=== PATIENT | male | born 1965 | race Caucasian/White ===

== ENCOUNTER 2021-02-07 08:58 | Emergency (ER) | payer OTHER ==
[2021-02-07] MEDS ORDERED: HYDROMORPHONE HCL 1 MG/ML INJ ONE ×3 (09:37→12:07)
[2021-02-07] MEDS ORDERED: ONDANSETRON 4 MG/2 ML VIAL ONE ×2 (09:37→11:02)
--- NOTE | 2021-02-07 09:49 | EDPHYS ---
Physician Documentation [facility] Name: Yasmin Vincent Age: 55 yrs Sex: Male : 1965 Arrival Date: 02/07/2021 Time: 08:58 Bed 3 Private MD: ED Physician Luke Kirby HPI: 02/07 09:43 This 55 yrs old Male presents to ER via EMS with complaints of Arm Injury. andrew 09:43 The patient or guardian complains of decreased range of motion, pain, that is acute. andrew The complaints affect the left bicep and left tricep. Context: The problem was sustained outdoors, on a street or driveway. Onset: The symptoms/episode began/occurred just prior to arrival. Treatment prior to arrival includes: no previous treatment. Modifying factors: The symptoms are alleviated by remaining still, the symptoms are aggravated by movement. Associated signs and symptoms: The patient has no apparent associated signs or symptoms. Severity of symptoms: At their worst the symptoms were moderate, in the emergency department the symptoms are unchanged. The patient has not experienced similar symptoms in the past. Historical: - Allergies: 09:09 Iodine; ss 09:09 Phenergan; ss - Home Meds: 09:09 amlodipine 10 mg tab 1 tab once daily [Active]; Lisinopril Oral [Active]; ss Hydrochlorothiazide Oral [Active]; - PMHx: 09:09 Hypertension; GERD; Kidney stones; ss - Immunization history:: Adult Immunizations up to date, Last tetanus immunization: Pt states he is unsure, but believes he had a tetanus vaccine last year. - Social history:: Smoking status: Patient reports the use of cigarette tobacco products, smokes one-half pack cigarettes per day. - Family history:: not pertinent. ROS: 09:43 Constitutional: Negative for fever, chills, and weight loss, Eyes: Negative for injury, andrew pain, redness, and discharge, ENT: Negative for injury, pain, and discharge, Neck: Negative for injury, pain, and swelling, Cardiovascular: Negative for chest pain, palpitations, and edema, Respiratory: Negative for shortness of breath, cough, wheezing, and pleuritic chest pain, Abdomen/GI: Negative for abdominal pain, nausea, vomiting, diarrhea, and constipation, Back: Negative for injury and pain, : Negative for injury, bleeding, discharge, and swelling, Skin: Negative for injury, rash, and discoloration, Neuro: Negative for headache, weakness, numbness, tingling, and seizure. 09:43 MS/extremity: Positive for decreased range of motion, pain, swelling, tenderness, of the left bicep and left tricep. Exam: 09:43 Constitutional: This is a well developed, well nourished patient who is awake, alert, andrew and in no acute distress. Head/Face: Normocephalic, atraumatic. Eyes: Pupils equal round and reactive to light, extra-ocular motions intact. Lids and lashes normal. Conjunctiva and sclera are non-icteric and not injected. Cornea within normal limits. Periorbital areas with no swelling, redness, or edema. ENT: Nares patent. No nasal discharge, no septal abnormalities noted. Tympanic membranes are normal and external auditory canals are clear. Oropharynx with no redness, swelling, or masses, exudates, or evidence of obstruction, uvula midline. Mucous membranes moist. Neck: Trachea midline, no thyromegaly or masses palpated, and no cervical lymphadenopathy. Supple, full range of motion without nuchal rigidity, or vertebral point tenderness. No Meningismus. Chest/axilla: Normal chest wall appearance and motion. Nontender with no deformity. No lesions are appreciated. Cardiovascular: Regular rate and rhythm with a normal S1 and S2. No gallops, murmurs, or rubs. Normal PMI, no JVD. No pulse deficits. Respiratory: Lungs have equal breath sounds bilaterally, clear to auscultation and percussion. No rales, rhonchi or wheezes noted. No increased work of breathing, no retractions or nasal flaring. Abdomen/GI: Soft, non-tender, with normal bowel sounds. No distension or tympany. No guarding or rebound. No evidence of tenderness throughout. Back: No spinal tenderness. No costovertebral tenderness. Full range of motion. Male : Normal genitalia with no discharge or lesions. Skin: Warm, dry with normal turgor. Normal color with no rashes, no lesions, and no evidence of cellulitis. Neuro: Awake and alert, GCS 15, oriented to person, place, time, and situation. Cranial nerves II-XII grossly intact. Motor strength 5/5 in all extremities. Sensory grossly intact. Cerebellar exam normal. Normal gait. Psych: Awake, alert, with orientation to person, place and time. Behavior, mood, and affect are within normal limits. 09:43 Musculoskeletal/extremity: Extremities: grossly normal except: noted in the left bicep and left tricep: decreased ROM, pain, swelling, tenderness, ROM: limited active range of motion due to pain, limited passive range of motion due to pain, Circulation is intact in all extremities. Tingling of extremity. Compartment Syndrome exam of affected extremity: is normal. Joints: All joints appear normal with full range of motion. DVT Exam: negative Homans' sign noted on exam, no appreciated bluish discoloration, no erythema, no increased warmth, pain, swelling, tenderness. Vital Signs: 09:05 BP 161 / 105; Pulse 72; Resp 20; Temp 97.7(O); Pulse Ox 100% on R/A; Weight 86.18 kg; ss Height 6 ft. 0 in. (182.88 cm); Pain 7/10; 10:00 BP 162 / 95; Pulse 77; Resp 16; Pulse Ox 99% on R/A; Pain 8/10; hb 10:55 BP 176 / 86; Pulse 71; Resp 17; Pulse Ox 99% on R/A; Pain 10/10; hb 11:45 BP 168 / 88; Pulse 70; Resp 15; Pulse Ox 97% ; Pain 8/10; hb 11:45 BP 172 / 88; Pulse 72; Resp 16; Temp 98; Pulse Ox 99% ; sv 09:05 Body Mass Index 25.77 (86.18 kg, 182.88 cm) [place] Coma Score: 10:00 Eye Response: spontaneous(4). Verbal Response: oriented(5). Motor Response: obeys sv commands(6). Total: 15. Trauma Score (Adult): 10:00 Eye Response: spontaneous(1); Verbal Response: oriented(1); Motor Response: obeys sv commands(2); Systolic BP: > 89 mm Hg(4); Respiratory Rate: 10 to 29 per min(4); [place] Score: 15; Trauma Score: 12 10:55 Eye Response: spontaneous(1); Verbal Response: oriented(1); Motor Response: obeys sv commands(2); Systolic BP: > 89 mm Hg(4); Respiratory Rate: 10 to 29 per min(4); [place] Score: 15; Trauma Score: 12 11:45 Eye Response: spontaneous(1); Verbal Response: oriented(1); Motor Response: obeys sv commands(2); Systolic BP: > 89 mm Hg(4); Respiratory Rate: 10 to 29 per min(4); [place] Score: 15; Trauma Score: 12 11:45 Eye Response: spontaneous(1); Verbal Response: oriented(1); Motor Response: obeys sv commands(2); Systolic BP: > 89 mm Hg(4); Respiratory Rate: 10 to 29 per min(4); [place] Score: 15; Trauma Score: 12 MDM: 09:12 Patient medically screened. [facility] 09:49 Differential diagnosis: closed fracture. Data reviewed: vital signs, nurses notes, lab [facility] test result(s), radiologic studies, plain films. Data interpreted: night monitor: rate is 72 beats/min, rhythm is regular, Pulse oximetry: on room air is 100 %. Test interpretation: by ED physician or midlevel provider: ECG, plain radiologic studies. Counseling: I had a detailed discussion with the patient and/or guardian regarding: the historical points, exam findings, and any diagnostic results supporting the discharge/admit diagnosis, lab results, radiology results. 02/07 09:43 Order name: CBC with Diff [facility] 02/07 09:43 Order name: Comprehensive Metabolic Panel; Complete Time: 10:43 [facility] 02/07 09:43 Order name: Humerus Left XRAY [facility] 02/07 09:43 Order name: Chest Single View XRAY [facility] 02/07 10:29 Order name: CBC Smear Scan [facility] 02/07 09:43 Order name: Splint: coaptation; Complete Time: 10:32 [facility] 02/07 09:48 Order name: NPO; Complete Time: 10:07 [facility] 02/07 10:17 Order name: Sling; Complete Time: 10:32 [facility] Administered Medications: 09:30 Drug: Dilaudid (HYDROmorphone) 1 mg Route: IVP; Site: right antecubital; hb 10:00 Follow up: Response: No adverse reaction hb 09:30 Drug: Zofran (Ondansetron) 4 mg Route: IVP; Site: right antecubital; hb 10:00 Follow up: Response: No adverse reaction hb 10:07 Drug: Dilaudid (HYDROmorphone) 1 mg Route: IVP; Site: right antecubital; hb 10:32 Follow up: Response: No adverse reaction hb 10:15 Drug: NS 0.9% 1000 ml Route: IV; Rate: 1 bolus; Site: right antecubital; hb 11:20 Follow up: Response: No adverse reaction; IV Status: Completed infusion; IV Intake: hb 1000ml 10:53 Drug: Dilaudid (HYDROmorphone) 1 mg Route: IVP; Site: right antecubital; hb 11:26 Follow up: Response: No adverse reaction hb 10:54 Drug: TORadol 30 mg Route: IVP; Site: right antecubital; hb 11:25 Follow up: Response: No adverse reaction hb 10:54 Drug: Zofran (Ondansetron) 4 mg Route: IVP; Site: right antecubital; hb 11:26 Follow up: Response: No adverse reaction hb 11:53 Drug: Dilaudid (HYDROmorphone) 1 mg Route: IVP; Site: right antecubital; hb 11:53 Follow up: Response: Medication administered at discharge. hb Disposition: 02/07/21 09:48 Transfer ordered to [facility]. Diagnosis is Displaced comminuted fracture of shaft of humerus, left arm. - Reason for transfer: Higher level of care. - Accepting physician is to , trauma. - Condition is Fair. - Problem is new. - Symptoms have improved. Signatures: Dispatcher [employer] EDMO Luke Kirby MD MD cha Mickail, Joel, PA PA jmm Smirch, Shelby, RN RN ss Baxter, Heather, RN RN Corrections: (The following items were deleted from the chart) 11:53 09:48 02/07/2021 09:48 Transfer ordered to [facility]. Diagnosis is hb Displaced comminuted fracture of shaft of humerus, left arm. Reason for transfer: Higher level of care. Accepting physician is to , trauma. Condition is Fair. Problem is new. Symptoms have improved. andrew
--- NOTE | 2021-02-07 09:49 | ER ---
Nurse's Notes [facility] Name: Yasmin Vincent Age: 55 yrs Sex: Male : 1965 Arrival Date: 02/07/2021 Time: 08:58 Bed 3 Private MD: Diagnosis: Displaced comminuted fracture of shaft of humerus, left arm Presentation: 02/07 09:05 Chief complaint: Patient states: L upper arm pain and deformity after slipping on ss second step of [address] while getting out just prior to arrival. Coronavirus screen: Client denies travel out of the [place] in the last 14 days. Ebola Screen: Patient denies exposure to infectious person. Patient denies travel to an Ebola-affected area in the 21 days before illness onset. Initial Sepsis Screen: Does the patient meet any 2 criteria? No. Patient's initial sepsis screen is negative. Does the patient have a suspected source of infection? No. Patient's initial sepsis screen is negative. Risk Assessment: Do you want to hurt yourself or someone else? Patient reports no desire to harm self or others. Onset of symptoms was February 07, 2021. 09:05 Method Of Arrival: EMS: [facility] 09:05 Acuity: SERGEI 2 ss 09:15 Care prior to arrival: None. Mechanism of Injury: Fall from standing position. 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 Trauma Activation: Not Applicable Physician: ED Physician; Name: ; Notified At: ; Arrived At: Physician: General Surgeon; Name: ; Notified At: ; Arrived At: Physician: Radiology; Name: ; Notified At: ; Arrived At: Physician: Respiratory; Name: ; Notified At: ; Arrived At: Physician: Lab; Name: ; Notified At: ; Arrived At: Historical: - Allergies: 09:09 Iodine; ss 09:09 Phenergan; ss - Home Meds: 09:09 amlodipine 10 mg tab 1 tab once daily [Active]; Lisinopril Oral [Active]; ss Hydrochlorothiazide Oral [Active]; - PMHx: 09:09 Hypertension; GERD; Kidney stones; ss - Immunization history:: Adult Immunizations up to date, Last tetanus immunization: Pt states he is unsure, but believes he had a tetanus vaccine last year. - Social history:: Smoking status: Patient reports the use of cigarette tobacco products, smokes one-half pack cigarettes per day. - Family history:: not pertinent. Screenin:11 Abuse screen: Denies threats or abuse. Denies injuries from another. Nutritional sv screening: No deficits noted. Tuberculosis screening: No symptoms or risk factors identified. Fall Risk None identified. Primary Survey: 09:05 NO uncontrolled hemorrhage observed. A: The patient is alert. Airway: patent. hb Breathing/Chest: Respiratory pattern: regular, Respiratory effort: spontaneous, unlabored, Chest inspection: symmetrical rise and fall of the chest. Circulation: Pulses: palpable . Skin color: pink, Skin temperature: warm, dry. Disability Alert. Exposure/Environment: There is no evidence of uncontrolled external bleeding. A warming method has been applied:. 10:00 Reassessment Airway Oxygen No O2 Breathing/Chest Respiratory pattern Regular hb Respiratory effort Spontaneous Unlabored Breath sounds Clear Circulation Pulses Palpable Color Drain Temperature Warm Dry Disability Alert. 11:00 Reassessment Airway Airway Patent Oxygen Breathing/Chest Respiratory pattern Regular hb Respiratory effort Spontaneous Unlabored Breath sounds Clear Circulation Pulses Palpable Color Drain Temperature Warm Dry Disability Alert. Secondary Survey: 09:10 HEENT: No deficits noted. Gastrointestinal: No deficits noted. Abdomen is. : No hb deficits noted. No signs and/or symptoms were reported regarding the genitourinary system. Musculoskeletal: Reports severe left arm and shoulder pain. Assessment: 09:15 General: Appears in no apparent distress. uncomfortable, Behavior is cooperative, hb anxious, restless. Pain: Pain currently is 10 out of 10 on a pain scale. Neuro: Level of Consciousness is awake, alert, obeys commands, Oriented to person, place, time, situation. Cardiovascular: Patient's skin is warm and dry. Respiratory: Respiratory effort is even, unlabored, Respiratory pattern is regular, symmetrical. GI: No signs and/or symptoms were reported involving the gastrointestinal system. : No signs and/or symptoms were reported regarding the genitourinary system. EENT: No signs and/or symptoms were reported regarding the EENT system. Derm: Skin is pink, warm \T\ dry. Musculoskeletal: Reports severe left upper arm and shoulder pain 08/19. 10:05 Reassessment: Patient appears in no apparent distress at this time. Patient and/or hb family updated on plan of care and expected duration. Pain level reassessed. Patient is alert, oriented x 3, equal unlabored respirations, skin warm/dry/pink. 10:19 Reassessment: Dr. Kirby and Delmer at bedside for splint application. hb 10:21 Reassessment: Report called to Clementine ANDRADE at [facility]. hb 10:54 Reassessment: Pt c/o pain 10/10, Dr. Kirby notified, medicated as ordered. Pt hb assisted to recliner. Awaiting transport to [facility] at this time. 11:45 Reassessment: Patient appears in no apparent distress at this time. Patient and/or hb family updated on plan of care and expected duration. Pain level reassessed. Patient is alert, oriented x 3, equal unlabored respirations, skin warm/dry/pink. Vital Signs: 09:05 BP 161 / 105; Pulse 72; Resp 20; Temp 97.7(O); Pulse Ox 100% on R/A; Weight 86.18 kg; ss Height 6 ft. 0 in. (182.88 cm); Pain 7/10; 10:00 BP 162 / 95; Pulse 77; Resp 16; Pulse Ox 99% on R/A; Pain 8/10; hb 10:55 BP 176 / 86; Pulse 71; Resp 17; Pulse Ox 99% on R/A; Pain 10/10; hb 11:45 BP 168 / 88; Pulse 70; Resp 15; Pulse Ox 97% ; Pain 8/10; hb 11:45 BP 172 / 88; Pulse 72; Resp 16; Temp 98; Pulse Ox 99% ; sv 09:05 Body Mass Index 25.77 (86.18 kg, 182.88 cm) [place] Coma Score: 10:00 Eye Response: spontaneous(4). Verbal Response: oriented(5). Motor Response: obeys sv commands(6). Total: 15. Trauma Score (Adult): 10:00 Eye Response: spontaneous(1); Verbal Response: oriented(1); Motor Response: obeys sv commands(2); Systolic BP: > 89 mm Hg(4); Respiratory Rate: 10 to 29 per min(4); [place] Score: 15; Trauma Score: 12 10:55 Eye Response: spontaneous(1); Verbal Response: oriented(1); Motor Response: obeys sv commands(2); Systolic BP: > 89 mm Hg(4); Respiratory Rate: 10 to 29 per min(4); [place] Score: 15; Trauma Score: 12 11:45 Eye Response: spontaneous(1); Verbal Response: oriented(1); Motor Response: obeys sv commands(2); Systolic BP: > 89 mm Hg(4); Respiratory Rate: 10 to 29 per min(4); [place] Score: 15; Trauma Score: 12 11:45 Eye Response: spontaneous(1); Verbal Response: oriented(1); Motor Response: obeys sv commands(2); Systolic BP: > 89 mm Hg(4); Respiratory Rate: 10 to 29 per min(4); [place] Score: 15; Trauma Score: 12 ED Course: 08:58 Patient arrived in ED. sv 08:58 Cristal Light, RN is Primary Nurse. sv 09:07 Triage completed. ss 09:09 Arm band placed on right wrist. ss 09:11 Patient has correct armband on for positive identification. Bed in low position. Call sv light in reach. Pulse ox on. NIBP on. Door closed. Head of bed elevated. 09:12 Luke Kirby MD is Attending Physician. andrew 09:12 ED physician to see patient. sv 09:20 Patient maintains SpO2 saturation greater than 95% on room air. Thermoregulation: warm hb blanket given to patient. 09:40 No provider procedures requiring assistance completed. hb 10:25 transfer initiated to [facility], pt accepted in transfer by dr Cruz, admin approval bd given by Clementine Pascual RN. 10:30 Анна Lazo, RN is Primary Nurse. sv 10:33 Maintain EMS IV. Dressing intact. Good blood return noted. Site clean \T\ dry. Gauge \T\ hb site: 20G RAC. 10:34 Humerus Left XRAY In Process Unspecified. EDMS 10:34 Chest Single View XRAY In Process Unspecified. EDMS 10:40 Patient transferred, IV remains in place. hb Administered Medications: 09:30 Drug: Dilaudid (HYDROmorphone) 1 mg Route: IVP; Site: right antecubital; hb 10:00 Follow up: Response: No adverse reaction hb 09:30 Drug: Zofran (Ondansetron) 4 mg Route: IVP; Site: right antecubital; hb 10:00 Follow up: Response: No adverse reaction hb 10:07 Drug: Dilaudid (HYDROmorphone) 1 mg Route: IVP; Site: right antecubital; hb 10:32 Follow up: Response: No adverse reaction hb 10:15 Drug: NS 0.9% 1000 ml Route: IV; Rate: 1 bolus; Site: right antecubital; hb 11:20 Follow up: Response: No adverse reaction; IV Status: Completed infusion; IV Intake: hb 1000ml 10:53 Drug: Dilaudid (HYDROmorphone) 1 mg Route: IVP; Site: right antecubital; hb 11:26 Follow up: Response: No adverse reaction hb 10:54 Drug: TORadol 30 mg Route: IVP; Site: right antecubital; hb 11:25 Follow up: Response: No adverse reaction hb 10:54 Drug: Zofran (Ondansetron) 4 mg Route: IVP; Site: right antecubital; hb 11:26 Follow up: Response: No adverse reaction hb 11:53 Drug: Dilaudid (HYDROmorphone) 1 mg Route: IVP; Site: right antecubital; hb 11:53 Follow up: Response: Medication administered at discharge. hb Intake: 10:00 PO: 0ml; Total: 0ml. sv 10:55 PO: 0ml; Total: 0ml. sv 11:20 IV: 1000ml; Total: 1000ml. hb 11:45 PO: 0ml; Total: 1000ml. sv 11:45 PO: 0ml; Total: 1000ml. sv Output: 10:00 Urine: 0ml; Total: 0ml. sv 10:55 Urine: 0ml; Total: 0ml. sv 11:45 Urine: 0ml; Total: 0ml. sv 11:45 Urine: 0ml; Total: 0ml. sv Outcome: 09:48 ER care complete, transfer ordered by MD. andrew 11:45 Patient's length of stay was not longer than 2 hours. awaiting higher level of hb carePatient's length of stay extended due to 11:50 Transferred by ground EMS to [facility]. hb 11:50 Condition: stable 11:50 Instructed on the need for transfer, Demonstrated understanding of instructions. 11:53 Patient left the ED. hb Signatures: Dispatcher [employer] EDMS Savi Mathias Stephanie, RN RN Luke Ly MD MD cha Smirch, Shelby, RN RN Анна Brian RN RN hb Corrections: (The following items were deleted from the chart) 10:33 09:19 Reassessment: Dr. Kirby and Delmer at bedside for splint application. hb hb
[2021-02-07 10:23] LABS: Absolute Lymphocytes (CBC) 0.8 K/uL (0.7-4.9); Basophils % 0.2 % (0-1.3); Hematocrit 42.8 % (39.6-49.0); Lymphocytes % 9.4 % (15.3-44.8); MPV 7.7 fL (7.6-11.3); RBC Red Blood Cell Count 4.91 M/uL (4.33-5.43)
[2021-02-07] MEDS ORDERED: NA CHLORIDE 0.9% 1,000 ML ONE (10:29)
[2021-02-07 10:42] LABS: ALT/SGPT 22 U/L (12-78); AST/SGOT 9 U/L (15-37); Albumin 3.7 g/dL (3.4-5.0); Alkaline Phosphatase 58 U/L (45-117); BUN Blood Urea Nitrogen 14 mg/dL (7-18); Bicarbonate 24 mmol/L (21-32); Bilirubin Total 0.5 mg/dL (0.2-1.0); Glucose Level 104 mg/dL (74-106); Potassium 3.6 mmol/L (3.5-5.1); Protein, Total 7.4 g/dL (6.4-8.2); Sodium Level 137 mmol/L (136-145)
--- NOTE | 2021-02-07 10:45 | RAD REPORT ---
EXAM DESCRIPTION: RAD - Chest Single View - 02/07/2021 10:34 am CLINICAL HISTORY: COUGH Chest pain. COMPARISON: CHEST SINGLE VIEW dated 08/09/2011; Humerus Left dated 02/07/2021 FINDINGS: Portable technique limits examination quality. The lungs are grossly clear. The heart is normal in size. No displaced fractures. IMPRESSION: No acute intrathoracic process suspected.
--- NOTE | 2021-02-07 10:46 | RAD REPORT ---
EXAM DESCRIPTION: RAD - Humerus Left - 02/07/2021 10:35 am CLINICAL HISTORY: PAIN Trauma, pain COMPARISON: No comparisons FINDINGS: Moderately displaced fracture of the mid shaft of the humerus is present with butterfly fr agment. No dislocation evident.
[2021-02-07] MEDS ORDERED: KETOROLAC 30 MG/ML INJ ONE (11:02)
[2021-02-07 12:08] LABS: Blood Morphology Comment NOT SEEN (NOT SEEN); Platelet Estimate ADEQ; White Blood Cell Scan OK (OK)
[2021-02-07 12:32] VITALS: O2SAT 99
[2021-02-07 12:34] VITALS: TEMP 97.7
[2021-02-07 12:35] VITALS: BP 176/86
== END 2021-02-07 11:53 | disposition short-term general hospital (02) ==
LOC: ER 08:58
PROC: 2W39X1Z Immobilization of Left Upper Extremity using Splint (ICD-10-PCS; principal; 2021-02-07)
DX: S42.352A Displaced comminuted fracture of shaft of humerus, left arm, initial encounter for closed fracture (principal); W18.30XA Fall on same level, unspecified, initial encounter; Y93.9 Activity, unspecified; Y92.89 Other specified places as the place of occurrence of the external cause; Z88.8 Allergy status to other drugs, medicaments and biological substances; Z91.048 Other nonmedicinal substance allergy status; I10 Essential (primary) hypertension; F17.210 Nicotine dependence, cigarettes, uncomplicated
CPT/HCPCS: 85025; 36415; 80053; 71045; 73060; 29105; J1170 ×3; J7030; J2405 ×2; 96361; 96374; 96375; 99285